=== PATIENT | female | born 1960 | race African-American/Black ===

== ENCOUNTER 2018-05-12 14:59 | Emergency (ER) | payer MEDICAID ==
[~2018-05-12] VITALS: Ht 170.2 cm; Wt 70.0 kg
[2018-05-12] MEDS ORDERED: SODIUM CHLORIDE 0.9% 1,000 ML IV ONE (15:39)
[2018-05-12] MEDS ORDERED: PIPERACILLIN SODIUM/TAZOBACTAM 4.5 G in DEXT 5% WATER 100 ML IV SCH (15:45)
[2018-05-12 16:34] LABS: BASOPHILS % 0.5 % (0.0-2.0); EOSINOPHILS % 1.4 % (0.0-5.0); HEMATOCRIT. 40.2 % (36.0-48.0); HEMOGLOBIN. 13.8 g/dL (12.0-16.0); LYMPHOCYTES % 19.6 % (20.0-50.0); MEAN CORPUSCULAR HEMOGLOBIN 32.2 pg (28.0-32.0); MEAN CORPUSCULAR VOLUME 93.5 fL (81.0-99.0); MONOCYTES % 6.1 % (2.0-8.0); NEUTROPHILS % 72.4 % (40.0-76.0); PLATELET 254 x1000/uL (130-400); RED CELL DISTRIBUTION WIDTH 13.2 % (11.6-14.6)
[2018-05-12 16:37] LABS: CHLORIDE 106 mEq/L (98-107)
[2018-05-12] MEDS ORDERED: IOHEXOL-300 100 ML BOTTLE ONE (17:40)
[2018-05-12] MEDS ORDERED: VANCOMYCIN 1 G PREMIX 200 ML IV SCH (18:15)
[2018-05-12 20:13] VITALS: BP 141/74
== END 2018-05-12 21:43 | disposition home or self-care (01) ==
LOC: ER 14:59 → CANBEDREQ 22:27
DX: L03.211 Cellulitis of face (principal)
CPT/HCPCS: 36415; 70491; 80053; 85025; 87040; 96365; 96366; 96367; 99284; J2543; J3370; J7030; Q9967; J7060

== ENCOUNTER 2018-09-27 15:17 | Emergency (ER) | payer MEDICAID ==
[~2018-09-27] VITALS: Ht 167.6 cm; Wt 65.0 kg
[2018-09-27] MEDS ORDERED: KETOROLAC 30MG/ML VIAL IV STA (15:48)
[2018-09-27 16:25] LABS: BASOPHILS % 0.9 % (0.0-2.0); EOSINOPHILS % 3.1 % (0.0-5.0); HEMATOCRIT. 36.9 % (36.0-48.0); HEMOGLOBIN. 12.5 g/dL (12.0-16.0); MEAN CORPUSCULAR HEMOGLOBIN 31.4 pg (28.0-32.0); MEAN CORPUSCULAR VOLUME 92.7 fL (81.0-99.0); MEAN PLATELET VOLUME 9.8 fl (7.4-10.4); MONOCYTES % 7.3 % (2.0-8.0); NEUTROPHILS % 55.7 % (40.0-76.0); PLATELET 198 x1000/uL (130-400); RED BLOOD CELL COUNT 3.97 mill/uL (4.2-5.4); RED CELL DISTRIBUTION WIDTH 13.4 % (11.6-14.6)
[2018-09-27 16:26] LABS: CHLORIDE 109 mEq/L (98-107)
[2018-09-27 17:45] VITALS: BP 168/73
== END 2018-09-27 17:45 | disposition home or self-care (01) ==
LOC: ER 15:17
DX: R07.89 Other chest pain (principal); Z91.040 Latex allergy status
CPT/HCPCS: 36415; 71045; 80053; 83880; 84484; 85025; 93005; 96374; 99284; J1885